=== PATIENT | female | born 1995 | race Caucasian/White ===

== ENCOUNTER 2018-02-10 21:09 | Emergency (ER) | payer SELFPAY ==
[2018-02-10 21:33] VITALS: BMI 31.1
[2018-02-10 21:36] VITALS: RESP 16; TEMP 98.2; O2SAT 98
[2018-02-10] MEDS ORDERED: Alum-Mag Hydrox-Simethicone Susp (30 mL) PO STA (21:48)
[2018-02-10] MEDS ORDERED: Sodium Chloride 0.9% 1,000 ML IV STA (21:48)
--- NOTE | 2018-02-10 22:02 | ED PDOC ---
HPI: Abdomen Time Seen by Provider: 02/10/18 21:37 Chief Complaint (Nursing): Abdominal Pain Chief Complaint (Provider): Epigastric pain for a month, worse today History Per: Patient History/Exam Limitations: no limitations Onset/Duration Of Symptoms: Days Outside of [place] travel?: No Current Symptoms Are (Timing): Still Present Additional Complaint(s): 22 yo female with history of gastritis presents with 1 month of epigastric pain , burning in nature. Pt reports similar many years ago when she was diagnosed with gastritis. Pt states she is not taking anything daily for gastritis. Pt states sometimes the pain is associated with nausea, such as today. PT denies radiation of pain. Pt did not take any medications today for pain. Pt denies diarrhea. Pt denies fever/chills. Past Medical History Reviewed: Historical Data, Nursing Documentation, Vital Signs Vital Signs: Last Vital Signs Temp 98.2 F 02/10/18 21:33 Pulse 99 H 02/10/18 21:33 Resp 16 02/10/18 21:33 BP 112/76 02/10/18 21:33 Pulse Ox 98 02/10/18 22:03 - Medical History PMH: Migraine - Surgical History Surgical History: Appendectomy - Family History Family History: States: No Known Family Hx - Living Arrangements Living Arrangements: With Family - Social History Current smoker - smoking cessation education provided: No - Immunization History Hx Tetanus Toxoid Vaccination: No Hx Influenza Vaccination: No Hx Pneumococcal Vaccination: No - Home Medications Home Medications: Ambulatory Orders Medication Instructions Recorded Brompheniramine/Pseudoephed/Dm 10 ml PO Q4 #300 ml 11/24/16 [Bromfed Dm Cough 118 ml] Ibuprofen [Advil] 2 tab PO PRN PRN 11/24/16 Ibuprofen [Motrin Tab] 600 mg PO Q8 #30 tab 11/24/16 Ondansetron ODT [Zofran ODT] 4 mg PO .Q4-6H PRN #20 odt 11/24/16 Famotidine [Pepcid] 20 mg PO BID #28 tab 02/11/18 - Allergies Allergies/Adverse Reactions: Allergies Allergy/AdvReac Type Severity Reaction Status Date / Time No Known Allergies Allergy Verified 02/10/18 21:33 Review of Systems ROS Statement: Except As Marked, All Systems Reviewed And Found Negative Constitutional: Negative for: Fever, Chills Cardiovascular: Negative for: Chest Pain Respiratory: Negative for: Cough, Shortness of Breath Gastrointestinal: Positive for: Nausea, Vomiting, Abdominal Pain. Negative for : Diarrhea, Constipation, Melena, Rectal Pain Physical Exam - Reviewed Nursing Documentation Reviewed: Yes Vital Signs Reviewed: Yes - Physical Exam Appears: Positive for: Well, Non-toxic, No Acute Distress Head Exam: Positive for: ATRAUMATIC, NORMAL INSPECTION, NORMOCEPHALIC Skin: Positive for: Normal Color, Warm, DRY Eye Exam: Positive for: Normal appearance ENT: Positive for: Normal ENT Inspection Neck: Positive for: Normal, Painless ROM Cardiovascular/Chest: Positive for: Regular Rate, Rhythm Respiratory: Positive for: Normal Breath Sounds. Negative for: Accessory Muscle Use, Respiratory Distress Gastrointestinal/Abdominal: Positive for: Tenderness (Epigastric, (-) Nobles's sign). Negative for: Normal Exam Back: Positive for: Normal Inspection Extremity: Positive for: Normal ROM Neurologic/Psych: Positive for: Alert, Oriented - Laboratory Results Result Diagrams: 02/10/18 23:12 02/10/18 23:12 - ECG O2 Sat by Pulse Oximetry: 98 Medical Decision Making Medical Decision Makin yo female with 1 month of epigastric pain and nausea reports feeling much better on re-evaluation. Labs normal. US normal. Disposition - Clinical Impression Clinical Impression: Gastritis - Patient ED Disposition Is Patient to be Admitted: No Counseled Patient/Family Regarding: Diagnosis, Need For Followup, Rx Given - Disposition Referrals: [facility] [Outside] Disposition: Routine/Home Disposition Time: 01:25 Condition: GOOD Prescriptions: Famotidine [Pepcid] 20 mg PO BID #28 tab Instructions: Gastritis (DC) Forms: [employer] (Faroese)
[2018-02-10] MEDS ORDERED: Alum-Mag Hydrox-Simethicone Susp (30 mL) ONE (22:53)
[2018-02-10] MEDS ORDERED: Famotidine 20mg/50ml 20 MG/50 ML BAG IVPB ONE (22:54)
[2018-02-10 23:19] LABS: BASO % 0.5 % (0.0-2.0); EOS # 0.3 K/uL (0.0-0.7); EOS % 2.8 % (0.0-4.0); HEMOGLOBIN 12.3 g/dL (12.0-16.0); LYMPH % 31.5 % (20.0-40.0); MEAN CELL VOLUME 81.5 fl (81.0-99.0); MEAN CORPUSCULAR HEMOGLOBIN 27.4 pg (27.0-31.0); MEAN CORPUSCULAR HGB CONC 33.6 g/dL (33.0-37.0); MEAN PLATELET VOLUME 7.7 fl (7.2-11.7); MONO # 0.7 K/uL (0.0-0.8); MONO % 7.7 % (0.0-10.0); NEUT # 5.5 K/uL (1.8-7.0); NEUT % 57.5 % (50.0-75.0); NRBC % 0.1 % (0.0-0.0); RBC 4.5 Mil/uL (3.80-5.20); RED CELL DISTRIBUTION WIDTH 14.4 % (11.5-14.5); WHITE BLOOD COUNT 9.6 K/uL (4.8-10.8)
[2018-02-10 23:25] LABS: ALB/GLOB RATIO 1.2 (1.0-2.1); ALBUMIN 4.2 g/dL (3.5-5.0); ALT/SGPT 30 U/L (9-52); AST/SGOT 45 U/L (14-36); BLOOD UREA NITROGEN 14 mg/dl (7-17); GFR AFRICAN-AMERICAN > 60; GFR NON-AFRICAN AMERICAN > 60; LIPASE 243 U/L (23-300)
[2018-02-11 01:48] VITALS: BP 108/54; PULSE 63
--- NOTE | 2018-02-11 16:54 | US ---
HISTORY: epigastric pain, nausea COMPARISON: None. TECHNIQUE: Sonographic evaluation of the right upper quadrant of the abdomen. FINDINGS: LIVER: Measures 14.5 cm in length. Normal echogenicity of the liver parenchyma. No mass. No intrahepatic bile duct dilatation. GALLBLADDER: Gallbladder is contracted and poorly evaluated. No cholelithiasis identified. COMMON BILE DUCT: Measures 4.3 mm. No stones. No dilatation. PANCREAS: Body of pancreas is unremarkable the head and tail obscured by overlying bowel gas. RIGHT KIDNEY: Measures 10.7 cm in length. Normal echogenicity. No calculus, mass, or hydronephrosis. AORTA: No aneurysmal dilatation. IVC: Unremarkable. OTHER FINDINGS: Left kidney appears grossly nonfocal as does the spleen. IMPRESSION: No obstructive uropathy right kidney. Body of pancreas unremarkable with the head and tail obscured by overlying bowel gas. Gallbladder is contracted and poorly evaluated as result. No biliary tree dilatation identified throughout.
== END 2018-02-11 01:46 | disposition home or self-care (01) ==
LOC: H.ER 21:09
DX: K29.70 Gastritis, unspecified, without bleeding (principal)
CPT/HCPCS: 76705; 80053; 83690; 85025; 96360; 99284; J7030

== ENCOUNTER 2018-08-29 17:32 | Emergency (ER) | payer SELFPAY ==
[2018-08-29 17:32] VITALS: BMI 31.1
[2018-08-29 17:44] VITALS: O2SAT 99
--- NOTE | 2018-08-29 18:26 | ED PDOC ---
HPI: General Adult Time Seen by Provider: 08/29/18 18:23 Chief Complaint (Nursing): Shortness Of Breath Chief Complaint (Provider): nasal congestion/cough History Per: Patient (23 y/o female here with nasal congestion/cough x 6 days associated with facial pain/sore throat and nausea. Noted vomiting prior to ED arrival. Notes moderate headache and pain under eyes. STates she has not taken any OTC medications.) Past Medical History Reviewed: Historical Data, Nursing Documentation, Vital Signs Vital Signs: Last Vital Signs Temp 98.3 F 08/29/18 17:44 Pulse 110 H 08/29/18 17:44 Resp 16 08/29/18 17:44 BP 140/80 08/29/18 17:44 Pulse Ox 99 08/29/18 17:44 - Medical History PMH: Migraine - Surgical History Surgical History: Appendectomy - Family History Family History: States: No Known Family Hx - Immunization History Hx Tetanus Toxoid Vaccination: No Hx Influenza Vaccination: No Hx Pneumococcal Vaccination: No - Home Medications Home Medications: Ambulatory Orders Medication Instructions Recorded Brompheniramine/Pseudoephed/Dm 10 ml PO Q4 #300 ml 11/24/16 [Bromfed Dm Cough 118 ml] Ibuprofen [Advil] 2 tab PO PRN PRN 11/24/16 Ondansetron ODT [Zofran ODT] 4 mg PO .Q4-6H PRN #20 odt 11/24/16 RX: Ibuprofen [Motrin Tab] 600 mg PO Q8 #30 tab 11/24/16 Famotidine [Pepcid] 20 mg PO BID #28 tab 02/11/18 Amoxicillin/Clavulanate [Augmentin 1 tab PO BID #20 tab 08/29/18 875 MG-125 MG] Famotidine [Pepcid] 20 mg PO BID #10 tab 08/29/18 Promethazine/Codeine 5 ml PO Q12 PRN #100 ml 08/29/18 [Codeine/Promethazine 10 MG/5 Ml-6.25 MG/5 Ml] RX: Pseudoephedrine [Sudafed Tab] 60 mg PO Q6 PRN #24 tab 08/29/18 - Allergies Allergies/Adverse Reactions: Allergies Allergy/AdvReac Type Severity Reaction Status Date / Time No Known Allergies Allergy Verified 02/10/18 21:33 Review of Systems ROS Statement: Except As Marked, All Systems Reviewed And Found Negative ENT: Positive for: Nose Congestion Physical Exam - Reviewed Nursing Documentation Reviewed: Yes Vital Signs Reviewed: Yes - Physical Exam Appears: Positive for: Well, Non-toxic, No Acute Distress Head Exam: Positive for: ATRAUMATIC, NORMAL INSPECTION, NORMOCEPHALIC Skin: Positive for: Normal Color, Warm, DRY Eye Exam: Positive for: EOMI, Normal appearance, PERRL ENT: Positive for: Nasal Congestion. Negative for: Normal ENT Inspection (facial tenderness) Neck: Positive for: Normal, Painless ROM Cardiovascular/Chest: Positive for: Regular Rate, Rhythm Respiratory: Positive for: CNT, Normal Breath Sounds Gastrointestinal/Abdominal: Positive for: Normal Exam, Soft Back: Positive for: Normal Inspection Extremity: Positive for: Normal ROM Neurologic/Psych: Positive for: Alert, Oriented - ECG O2 Sat by Pulse Oximetry: 99 Disposition - Clinical Impression Clinical Impression: Sinusitis - Patient ED Disposition Is Patient to be Admitted: No - Disposition Disposition: Routine/Home Disposition Time: 18:24 Condition: FAIR Prescriptions: Amoxicillin/Clavulanate [Augmentin 875 MG-125 MG] 1 tab PO BID #20 tab Famotidine [Pepcid] 20 mg PO BID #10 tab Promethazine/Codeine [Codeine/Promethazine 10 MG/5 Ml-6.25 MG/5 Ml] 5 ml PO Q12 PRN #100 ml PRN Reason: Cough RX: Pseudoephedrine [Sudafed Tab] 60 mg PO Q6 PRN #24 tab PRN Reason: Nasal Congestion Instructions: Sinusitis, Adult (DC) Forms: [facility] ED School/Work Excuse Print Language: PORTUGUESE
[2018-08-29 20:55] VITALS: BP 119/66; PULSE 82; RESP 17; TEMP 98
== END 2018-08-29 20:46 | disposition home or self-care (01) ==
LOC: H.ER 17:32
DX: J32.9 Chronic sinusitis, unspecified (principal)
CPT/HCPCS: 81025; 96372; 99283; J1885